=== PATIENT | female | born 1950 | race African-American/Black ===

== ENCOUNTER → 2017-10-23 | Outpatient (CLI) | payer MEDICARE, OTHER ==
[2017-10-23 11:14] LABS: ANION GAP 11 (5-19); BLOOD UREA NITROGEN 22 mg/dL (7-20); CALCIUM 9.7 mg/dL (8.4-10.2); CARBON DIOXIDE 30 mmol/L (22-30); CHLORIDE 106 mmol/L (98-107); GLUCOSE 87 mg/dL (75-110); SODIUM 146.8 mmol/L (137-145)
[2017-10-23 11:45] LABS: 24 HOUR URINE PROTEIN RESULT 296 mg/day (42-225); URINE PROTEIN 10.7 mg/dL (<12)
[2017-10-23 11:48] LABS: CREATININE 0.97 mg/dL (0.52-1.25)
== END ==
LOC: OD 09:43
PROVIDERS: ATTEND Internal Medicine Nephrology
DX: I12.9 Hypertensive chronic kidney disease with stage 1 through stage 4 chronic kidney disease, or unspecified chronic kidney disease (principal); N18.9 Chronic kidney disease, unspecified
CPT/HCPCS: 36415; 80048; 82575; 84156